=== PATIENT | female | born 2000 | race Caucasian/White ===

== ENCOUNTER 2023-10-22 11:48 | Emergency (ER) | payer OTHER ==
[2023-10-22 12:10] VITALS: BP 113/73; O2SAT 99
--- NOTE | 2023-10-22 12:14 | ED Physician Documentation ---
History of Present Illness - Stated complaint Stated Complaint: LT HAND LAC - Chief complaint Chief Complaint: Trauma Hd/Nk - History obtained from History obtained from: Patient (Right-handed woman who is up-to-date on tetanus smashed her left middle finger in a car door just prior to arrival with moderate pain. 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 - Present Medications Home Medications: Ambulatory Orders Medication Instructions Recorded Confirmed Escitalopram [Lexapro] 10 mg PO DAILY 10/22/23 10/22/23 Levothyroxine Sodium 137 mcg PO DAILY 10/22/23 10/22/23 - Allergies Allergies/Adverse Reactions: Allergies Allergy/AdvReac Type Severity Reaction Status Date / Time No Known Drug Allergies Allergy Verified 10/22/23 12:00 - Social History Does the pt smoke?: No Smoking Status: Never smoker Does the pt drink ETOH?: No Does the pt have substance abuse?: No - Immunizations Immunizations are current?: Yes PD ED PE NORMAL - Vitals Vital signs reviewed: Yes - General General: Alert and oriented X 3, No acute distress - Extremities Extremities: No deformity, Other (On the palmar surface of the pulp of the left middle finger there is a diminutive laceration measuring about 5 mm. On the dorsal surface there is a 1 cm laceration just proximal to the nail plate. No distal neurovascular compromise.) - Neuro Neuro: Alert and oriented X 3, Normal speech Results - Vitals Vitals: Vital Signs - 24 hr 10/22/23 11:56 Temperature 36.3 C L Heart Rate 65 Respiratory 15 Rate Blood Pressure 113/73 O2 Saturation 99 Oxygen O2 Source Room air - Rads (name of study) Left middle finger x-ray is negative for fracture. Relevant Findings:: Final report received, EMP independent interpretation of test Procedures - Laceration (location) L 2nd finger Length in cm: 1.5 Wound type: Into subcut fat Neurovascular status: Sensory intact, Motor intact Tendon involvement: Tendon intact Anesthesia: Lidocaine 1% (Digital block with excellent anesthesia) Wound preparation: Irrigated copiously NS Skin layer closure: Nylon, Size #-0 - enter number (5-0), Sutures - enter # (4) Other: Patient tolerated well, No complications, Neurovascular intact Departure - Departure Disposition: Home, Self Care Clinical Impression: Crush injury to finger Qualifiers: Encounter type: initial encounter Qualified Code(s): S67.10XA - Crushing injury of unspecified finger(s), initial encounter Finger laceration Qualifiers: Encounter type: initial encounter Finger: middle finger Damage to nail status: with damage Foreign body presence: without foreign body Laterality: left Qualified Code(s): S61.313A - Laceration without foreign body of left middle finger with damage to nail, initial encounter Condition: Good Record reviewed to determine appropriate education?: Yes Instructions: ED Laceration Hand Comments: Come back for any signs of infection which would include: Redness, swelling, drainage, increased pain, or fevers. You can wash it soap and water. Keep it covered and moist with bacitracin ointment which is available over the counter; avoid neosporin. Follow-up with your physician in about 14 days for suture removal. Forms: PCP List Discharge Date/Time: 10/22/23 12:52
--- NOTE | 2023-10-22 13:19 | XRAY Report ---
PROCEDURE: Finger(s) LT INDICATIONS: middle finger inj TECHNIQUE: AP hand, 2 views of the there finger(s) acquired. COMPARISON: None. FINDINGS: Bones: No fractures or dislocations. No suspicious bony lesions. Soft tissues: No suspicious soft tissue calcifications or masses. Third digit soft tissue injury. N o radiopaque foreign body. IMPRESSION: Third digit soft tissue injury without radiopaque foreign body. No visualized acute fracture or dislo cation. However, occult injury cannot be excluded. Recommend short interval imaging follow-up in 7-10 days as clinically indicated for additional evaluation. Reviewed by: Annmarie Wheeler MD on 10/22/2023 1:17 PM PDT Approved by: Annmarie Wheeler MD on 10/22/2023 1:17 PM PDT Station ID: [id number]
== END 2023-10-22 12:52 | disposition home or self-care (01) ==
LOC: ED 11:48
DX: S61.213A Laceration without foreign body of left middle finger without damage to nail, initial encounter (principal); W23.1XXA Caught, crushed, jammed, or pinched between stationary objects, initial encounter; Y93.89 Activity, other specified; Y92.810 Car as the place of occurrence of the external cause
CPT/HCPCS: 12001; 99283

== ENCOUNTER 2023-12-02 11:17 | Emergency (ER) | payer OTHER ==
--- NOTE | 2023-12-02 11:42 | ED Physician Documentation ---
History of Present Illness - Stated complaint Stated Complaint: MED REFILL - Chief complaint Chief Complaint: General - History obtained from History obtained from: Patient - History of Present Illness Timing: How many days ago (had run out of her thyroid med 3 days ago and is trying to get refill through PCP, but is being told needs patient appt first, which is not for anothe month. 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 - Present Medications Home Medications: Ambulatory Orders Medication Instructions Recorded Confirmed Escitalopram [Lexapro] 10 mg PO DAILY 10/22/23 12/02/23 Levothyroxine Sodium 137 mcg PO DAILY 10/22/23 12/02/23 Levothyroxine Sodium 137 mcg PO DAILY #30 tablet 12/02/23 - Allergies Allergies/Adverse Reactions: Allergies Allergy/AdvReac Type Severity Reaction Status Date / Time No Known Drug Allergies Allergy Verified 12/02/23 11:31 - Social History Does the pt smoke?: No Smoking Status: Never smoker Does the pt drink ETOH?: No Does the pt have substance abuse?: No - Immunizations Immunizations are current?: Yes - POLST Patient has POLST: No Results - Vitals Vitals: Oxygen O2 Source Room air PD Medical Decision Making - ED course Complexity details: considered differential (had run out of her thyroid med 3 days ago and is trying to get refill through PCP, but is being told needs patient appt first, which is not for anothe month. Advised by PCP office to go to ED. Here for Rx.), d/w patient Departure - Departure Disposition: Home, Self Care Clinical Impression: Hypothyroidism, Difficulty refilling prescriptions Condition: Stable Record reviewed to determine appropriate education?: Yes Instructions: ED Hypothyroidism Follow-Up: SKYLER Lopez [Provider Group] Prescriptions: Levothyroxine Sodium 137 mcg PO DAILY #30 tablet Comments: I sent the prescription for your thyroid supplement to the [facility] in [place]. Good luck establishing better rhythm with your primary care provider. Hopefully they get their appointments calendar straightened out for you etc. I did put a refill on there so you have 2 months worth of medication. Forms: PCP List Discharge Date/Time: 12/02/23 12:14
[2023-12-02 11:47] VITALS: BP 120/65; O2SAT 99
== END 2023-12-02 12:14 | disposition home or self-care (01) ==
LOC: ED 11:17
DX: Z76.0 Encounter for issue of repeat prescription (principal); E03.9 Hypothyroidism, unspecified; T38.1X6A Underdosing of thyroid hormones and substitutes, initial encounter; Z91.138 Patient's unintentional underdosing of medication regimen for other reason
CPT/HCPCS: 99282; 99283

== ENCOUNTER 2023-12-06 10:45 | Outpatient (CLI) | payer OTHER ==
[2023-12-06 17:49] LABS: HCT - HEMATOCRIT 42.3 % (37.0-47.0); HGB - HEMOGLOBIN 13.3 g/dL (12.0-16.0); MEAN CORPUSCULAR HEMOGLOBIN 25.8 pg (27.0-31.0); MEAN CORPUSCULAR HGB CONC 31.4 g/dL (32.0-36.0); MEAN PLATELET VOLUME 11.8 fL (7.9-10.8); RED BLOOD COUNT 5.16 10^6/uL (4.20-5.40); RED CELL DISTRIBUTION WIDTH 14.6 % (12.0-15.0); WHITE BLOOD COUNT 5.6 x10^3/uL (4.8-10.8)
[2023-12-06 18:07] LABS: CALCIUM 9.4 mg/dL (8.5-10.3); CREATININE 0.5 mg/dL (0.6-1.3); POTASSIUM 3.9 mmol/L (3.5-4.5)
[2023-12-06 18:14] LABS: THYROID STIMULATING HORMONE 9.04 uIU/mL (0.34-5.60)
== END 2023-12-06 11:00 | disposition home or self-care (01) ==
LOC: LAB.N 10:45
PROVIDERS: ATTEND Physician Assistant
DX: E04.0 Nontoxic diffuse goiter (principal)
CPT/HCPCS: 36415; 80048; 84436; 84443; 84480; 85027